=== PATIENT | female | born 1960 | race African-American/Black ===

== ENCOUNTER 2022-09-03 06:03 | Inpatient (IN) | payer OTHER ==
[2022-09-03 06:46] LABS: #Eosinphils 0.1 10x3/uL (0.0-0.5); #Monocytes 1.5 10x3/uL (0.0-1.1); #Neutrophils 7.2 10x3/uL (1.5-8.4); %Basophils 0.2 % (0.0-2.0); %Eosinophils 0.6 % (0.0-6.0); %Lymphocytes 16.3 % (18.0-47.0); %Monocytes 14.3 % (0.0-10.0); %Neutrophils 68.2 % (40.0-75.0); Hemoglobin 8.6 g/dL (12.0-15.5); Mean Corpuscular HGB CONC 29.6 g/dL (32.0-36.0); Mean Corpuscular Hemoglobin 28.4 pg (27.0-33.0); Mean Platelet Volume 10.6 fl (7.4-10.4); Platelet Count 141 10x3/uL (150-450); RBC Distribution Width 18.7 % (11.5-14.5); Red Blood Cell (RBC) Count 3.03 10x6/uL (3.90-5.03); White Blood Cell (WBC) Count 10.5 10x3/uL (3.5-10.5)
[2022-09-03 07:02] LABS: ALT (SGPT) 13 U/L (8-55); AST (SGOT) 19 U/L (5-34); Albumin 3.3 g/dL (3.4-4.8); Alkaline Phosphatase 144 U/L (40-110); Anion Gap 20 mmol/L (10-20); BUN (Urea Nitrogen) 49 mg/dL (9.8-20.1); Bilirubin, Total 0.2 mg/dL (0.2-1.2); Calc. Creatinine Clearance 0 mL/min (70-130); Calcium 9.2 mg/dL (7.8-10.44); Carbon Dioxide 17 mmol/L (23-31); Chloride 112 mmol/L (98-107); Estimated GFR 24; Globulin 5.3 g/dL (2.4-3.5); Glucose 111 mg/dL (80-115); Potassium 5.7 mmol/L (3.5-5.1); Protein, Total 8.6 g/dL (5.8-8.1); Sodium 143 mmol/L (136-145)
[2022-09-03 07:20] LABS: Anisocytosis SLIGHT = 6-15 cells (100X) (0-5/hpf); Hypochromia MODERATE=16-30 cells (100X) (0-5/hpf); Macrocytosis SLIGHT = 6-15 cells (100X) (0-5/hpf)
[2022-09-03 07:21] LABS: Platelet Morphology Comment Appears Adequate
[2022-09-03] MEDS ORDERED: Furosemide 40 MG/4 ML VIAL ONE (07:22)
[2022-09-03 07:29] LABS: SARS-CoV-2 NAA Rapid Test Not Detected (NotDetected)
[2022-09-03] MEDS ORDERED: risperiDONE 0.5 MG TAB ONE (08:02)
[2022-09-03] MEDS ORDERED: Acetaminophen 650 MG Suppository PR PRN (10:35)
[2022-09-03 10:43] LABS: Anion Gap 16 mmol/L (10-20); BUN (Urea Nitrogen) 47 mg/dL (9.8-20.1); Calc. Creatinine Clearance 0 mL/min (70-130); Calcium 9.2 mg/dL (7.8-10.44); Carbon Dioxide 18 mmol/L (23-31); Chloride 111 mmol/L (98-107); Estimated GFR 25; Glucose 114 mg/dL (80-115); Potassium 5.6 mmol/L (3.5-5.1); Sodium 139 mmol/L (136-145)
[2022-09-03] MEDS ORDERED: Ipratropium/Albuterol 3 ML NEB NEB PRN (11:01)
[2022-09-03] MEDS ORDERED: Calcium Gluconate 4.6 MEQ in Sodium Chloride 0.9% 100 ML IVPB SCH ×2 (11:02→16:30)
[2022-09-03 11:50] LABS: Magnesium 2.6 mg/dL (1.6-2.6)
[2022-09-03] MEDS: Furosemide 40 MG/4 ML VIAL SLOW IVP SCH (16:17)
[2022-09-03] MEDS ORDERED: FLU VACC QS2022-23(6MOS UP)/PF 60 MCG/0.5 ML SYRINGE IM ONE (16:30)
[2022-09-03] MEDS: Carvedilol 12.5 MG TAB PO SCH (17:03)
[2022-09-03 17:34] LABS: Actual Bicarbonate (HCO3a) 21.2 mEq/L (22-28); CO2 Tension 44.5 mmHg (35.0-45.0); O2 Tension (PaO2), arterial 85.2 mmHg (> 80.0)
[2022-09-03 17:35] LABS: Calcium, Ionized (arterial) 1.25 mmol/L (1.12-1.30); Carboxyhemoglobin (COHb) 0.7 gm% (0.0-3.0); Hemoglobin (Hb) 9.7 g/dL (12.0-16.0); Potassium - ABG Lab 5.4 mmol/L (3.70-5.30)
[2022-09-03 17:36] LABS: ALV-art Gradient 572.175 mmHg (0-20); Puncture Site LRA
[2022-09-03] MEDS: Aripiprazole 10 MG TAB PO SCH (21:12)
[2022-09-03] MEDS: Atorvastatin Calcium 10 MG TAB PO SCH (21:12)
[2022-09-03] MEDS: Haloperidol 5 MG TAB PO SCH (21:12)
[2022-09-03] MEDS: Benztropine 1 MG TAB PO SCH (21:12)
[2022-09-03] MEDS: Heparin 5,000 UNITS/ML VIAL SC SCH (21:18)
[2022-09-04] MEDS: Acetaminophen 325 MG TAB PO PRN ×2 (00:18→11:12)
[2022-09-04 05:00] LABS: Anion Gap 15 mmol/L (10-20); BUN (Urea Nitrogen) 59 mg/dL (9.8-20.1); Calc. Creatinine Clearance 0 mL/min (70-130); Calcium 9.1 mg/dL (7.8-10.44); Carbon Dioxide 20 mmol/L (23-31); Chloride 111 mmol/L (98-107); Estimated GFR 22; Glucose 146 mg/dL (80-115); Potassium 5.5 mmol/L (3.5-5.1); Sodium 140 mmol/L (136-145)
[2022-09-04 05:07] LABS: #Monocytes 0.5 10x3/uL (0.0-1.1); %Lymphocytes 13.3 % (18.0-47.0); %Monocytes 7.8 % (0.0-10.0); %Neutrophils 78.3 % (40.0-75.0); Hemoglobin 8.1 g/dL (12.0-15.5); Mean Corpuscular HGB CONC 29.7 g/dL (32.0-36.0); Mean Corpuscular Hemoglobin 28.6 pg (27.0-33.0); Mean Corpuscular Volume 96.5 fl (81.6-98.3); Mean Platelet Volume 10.3 fl (7.4-10.4); Platelet Count 106 10x3/uL (150-450); Red Blood Cell (RBC) Count 2.83 10x6/uL (3.90-5.03); White Blood Cell (WBC) Count 6.4 10x3/uL (3.5-10.5)
[2022-09-04] MEDS: Furosemide 40 MG/4 ML VIAL SLOW IVP SCH (05:39)
[2022-09-04 06:31] LABS: Microcytosis SLIGHT = 6-15 cells (100X) (0-5/hpf); Ovalocytes SLIGHT = 2-5 cells (100X) (0-1/hpf); Tear Drops SLIGHT = 2-5 cells (100X) (0-1/hpf)
[2022-09-04 06:32] LABS: Anisocytosis SLIGHT = 6-15 cells (100X) (0-5/hpf); Macrocytosis SLIGHT = 6-15 cells (100X) (0-5/hpf); Platelet Morphology Comment Appears Decreased
[2022-09-04] MEDS: Haloperidol 5 MG TAB PO SCH ×2 (08:14→21:13)
[2022-09-04] MEDS: Divalproex Sodium DR 500 MG TAB PO SCH (08:14)
[2022-09-04] MEDS: Carvedilol 12.5 MG TAB PO SCH ×2 (08:14→17:07)
[2022-09-04] MEDS: Benztropine 1 MG TAB PO SCH ×2 (08:14→21:13)
[2022-09-04] MEDS: Aspirin 81 mg Enteric Coated Tablet PO SCH (08:14)
[2022-09-04] MEDS: Heparin 5,000 UNITS/ML VIAL SC SCH ×2 (09:33→21:12)
[2022-09-04] MEDS ORDERED: Furosemide 40 MG TAB PO SCH (14:00)
[2022-09-04] MEDS: Aripiprazole 10 MG TAB PO SCH (21:12)
[2022-09-04] MEDS: Atorvastatin Calcium 10 MG TAB PO SCH (21:13)
[2022-09-05 04:05] LABS: #Monocytes 0.7 10x3/uL (0.0-1.1); #Neutrophils 3.9 10x3/uL (1.5-8.4); %Basophils 0.2 % (0.0-2.0); %Eosinophils 0.5 % (0.0-6.0); %Lymphocytes 24.4 % (18.0-47.0); %Monocytes 11.8 % (0.0-10.0); %Neutrophils 62.5 % (40.0-75.0); Hemoglobin 8.1 g/dL (12.0-15.5); Mean Corpuscular HGB CONC 29.8 g/dL (32.0-36.0); Mean Corpuscular Hemoglobin 28.4 pg (27.0-33.0); Mean Corpuscular Volume 95.4 fl (81.6-98.3); Mean Platelet Volume 10.2 fl (7.4-10.4); Platelet Count 114 10x3/uL (150-450); RBC Distribution Width 18.8 % (11.5-14.5); Red Blood Cell (RBC) Count 2.85 10x6/uL (3.90-5.03); White Blood Cell (WBC) Count 6.3 10x3/uL (3.5-10.5)
[2022-09-05 04:18] LABS: Anion Gap 14 mmol/L (10-20); BUN (Urea Nitrogen) 64 mg/dL (9.8-20.1); Calc. Creatinine Clearance 0 mL/min (70-130); Calcium 9.1 mg/dL (7.8-10.44); Carbon Dioxide 21 mmol/L (23-31); Chloride 112 mmol/L (98-107); Estimated GFR 23; Glucose 125 mg/dL (80-115); Potassium 5.5 mmol/L (3.5-5.1); Sodium 141 mmol/L (136-145)
[2022-09-05 04:46] LABS: Anisocytosis SLIGHT = 6-15 cells (100X) (0-5/hpf); Hypochromia SLIGHT = 6-15 cells (100X) (0-5/hpf); Platelet Morphology Comment Appears Decreased
[2022-09-05] MEDS: Aspirin 81 mg Enteric Coated Tablet PO SCH (11:08)
[2022-09-05] MEDS: Haloperidol 5 MG TAB PO SCH ×2 (11:08→21:21)
[2022-09-05] MEDS: Carvedilol 12.5 MG TAB PO SCH ×2 (11:08→16:50)
[2022-09-05] MEDS: Benztropine 1 MG TAB PO SCH ×2 (11:09→21:20)
[2022-09-05] MEDS: Heparin 5,000 UNITS/ML VIAL SC SCH ×2 (11:09→21:27)
[2022-09-05] MEDS: Divalproex Sodium DR 500 MG TAB PO SCH (11:09)
[2022-09-05] MEDS: Acetaminophen 325 MG TAB PO PRN ×2 (13:49→21:20)
[2022-09-05] MEDS ORDERED: Furosemide 40 MG TAB PO SCH (17:00)
[2022-09-05] MEDS ORDERED: EPOETIN ALFA-EPBX (ESRD) 10,000 UNIT/ML VIAL SC SCH (18:30)
[2022-09-05] MEDS: Aripiprazole 10 MG TAB PO SCH (21:20)
[2022-09-05] MEDS: Atorvastatin Calcium 10 MG TAB PO SCH (21:20)
[2022-09-06 04:42] LABS: #Eosinphils 0.1 10x3/uL (0.0-0.5); #Monocytes 0.7 10x3/uL (0.0-1.1); #Neutrophils 2.4 10x3/uL (1.5-8.4); %Basophils 0.4 % (0.0-2.0); %Eosinophils 1.2 % (0.0-6.0); %Lymphocytes 35.3 % (18.0-47.0); %Monocytes 14.6 % (0.0-10.0); %Neutrophils 47.9 % (40.0-75.0); Hemoglobin 7.7 g/dL (12.0-15.5); Mean Corpuscular HGB CONC 29.3 g/dL (32.0-36.0); Mean Corpuscular Hemoglobin 28.5 pg (27.0-33.0); Mean Corpuscular Volume 97.4 fl (81.6-98.3); Mean Platelet Volume 10.3 fl (7.4-10.4); Platelet Count 86 10x3/uL (150-450); RBC Distribution Width 18.7 % (11.5-14.5); White Blood Cell (WBC) Count 4.9 10x3/uL (3.5-10.5)
[2022-09-06 04:55] LABS: Anion Gap 13 mmol/L (10-20); BUN (Urea Nitrogen) 59 mg/dL (9.8-20.1); Calc. Creatinine Clearance 0 mL/min (70-130); Calcium 8.9 mg/dL (7.8-10.44); Carbon Dioxide 19 mmol/L (23-31); Chloride 114 mmol/L (98-107); Estimated GFR 33; Glucose 126 mg/dL (80-115); Potassium 5.3 mmol/L (3.5-5.1); Sodium 141 mmol/L (136-145)
[2022-09-06 05:13] LABS: Anisocytosis SLIGHT = 6-15 cells (100X) (0-5/hpf); Hypochromia SLIGHT = 6-15 cells (100X) (0-5/hpf)
[2022-09-06 05:14] LABS: Platelet Morphology Comment Appears Decreased
[2022-09-06] MEDS: Acetaminophen 325 MG TAB PO PRN (09:14)
[2022-09-06] MEDS: Haloperidol 5 MG TAB PO SCH ×2 (09:15→20:42)
[2022-09-06] MEDS: Furosemide 40 MG TAB PO SCH ×2 (09:15→15:24)
[2022-09-06] MEDS: Divalproex Sodium DR 500 MG TAB PO SCH (09:15)
[2022-09-06] MEDS: Heparin 5,000 UNITS/ML VIAL SC SCH ×2 (09:15→20:49)
[2022-09-06] MEDS: Benztropine 1 MG TAB PO SCH ×2 (09:15→20:43)
[2022-09-06] MEDS: Aspirin 81 mg Enteric Coated Tablet PO SCH (09:15)
[2022-09-06] MEDS: Carvedilol 12.5 MG TAB PO SCH ×2 (09:15→16:16)
[2022-09-06] MEDS ORDERED: ALPRAZolam 1 MG TAB PO SCH (18:45)
[2022-09-06] MEDS: Aripiprazole 10 MG TAB PO SCH (20:42)
[2022-09-06] MEDS: Atorvastatin Calcium 10 MG TAB PO SCH (20:43)
[2022-09-06] MEDS ORDERED: Metoprolol Tartrate 25 MG TAB PO SCH (23:45)
[2022-09-07 04:50] LABS: Hemoglobin 7.2 g/dL (12.0-15.5); Mean Corpuscular HGB CONC 30.1 g/dL (32.0-36.0); Mean Corpuscular Hemoglobin 28.7 pg (27.0-33.0); Mean Corpuscular Volume 95.2 fl (81.6-98.3); Mean Platelet Volume 10.1 fl (7.4-10.4); Platelet Count 69 10x3/uL (150-450); Red Blood Cell (RBC) Count 2.51 10x6/uL (3.90-5.03); White Blood Cell (WBC) Count 4.9 10x3/uL (3.5-10.5)
[2022-09-07 04:52] LABS: MDiff Complete? YES
[2022-09-07 05:01] LABS: Anion Gap 11 mmol/L (10-20); BUN (Urea Nitrogen) 46 mg/dL (9.8-20.1); Calc. Creatinine Clearance 0 mL/min (70-130); Calcium 9.1 mg/dL (7.8-10.44); Carbon Dioxide 27 mmol/L (23-31); Chloride 109 mmol/L (98-107); Estimated GFR 44; Glucose 107 mg/dL (80-115); Potassium 4.6 mmol/L (3.5-5.1); Sodium 142 mmol/L (136-145)
[2022-09-07 05:23] LABS: Eosinophils 1 % (0-10); Lymphocytes 40 % (21-51); Monocytes 16 % (0-10); Neutrophil 42 % (42-75)
[2022-09-07 05:24] LABS: Anisocytosis SLIGHT = 6-15 cells (100X) (0-5/hpf); Hypochromia SLIGHT = 6-15 cells (100X) (0-5/hpf)
[2022-09-07 05:25] LABS: Platelet Morphology Comment Appears Decreased
[2022-09-07] MEDS: Divalproex Sodium DR 500 MG TAB PO SCH (09:00)
[2022-09-07] MEDS: Acetaminophen 325 MG TAB PO PRN (09:00)
[2022-09-07] MEDS: Haloperidol 5 MG TAB PO SCH (09:00)
[2022-09-07] MEDS ORDERED: NIFEdipine XL 60 MG TAB PO SCH (09:00)
[2022-09-07] MEDS: Carvedilol 12.5 MG TAB PO SCH ×2 (09:00→16:35)
[2022-09-07] MEDS: Furosemide 40 MG TAB PO SCH ×2 (09:00→16:35)
[2022-09-07] MEDS: hydrALAZINE 25 MG TAB PO SCH ×2 (09:00→16:36)
[2022-09-07] MEDS: Aspirin 81 mg Enteric Coated Tablet PO SCH (09:01)
[2022-09-07] MEDS: Heparin 5,000 UNITS/ML VIAL SC SCH (09:01)
[2022-09-07] MEDS: Benztropine 1 MG TAB PO SCH (09:01)
[2022-09-07 15:21] VITALS: BP 184/100; TEMP 97.9
[2022-09-12] MEDS ORDERED: EPOETIN ALFA-EPBX (ESRD) 10,000 UNIT/ML VIAL SC SCH (13:00)
== END 2022-09-07 17:00 | DRG 682 ==
LOC: CSHERS 06:03 → CSHTELE 14:13
PROVIDERS: ADMIT Internal Medicine; ATTEND Internal Medicine
DX: N17.9 Acute kidney failure, unspecified (principal); I50.33 Acute on chronic diastolic (congestive) heart failure; J96.01 Acute respiratory failure with hypoxia; I13.0 Hypertensive heart and chronic kidney disease with heart failure and stage 1 through stage 4 chronic kidney disease, or unspecified chronic kidney disease; E87.20 Acidosis, unspecified; E78.5 Hyperlipidemia, unspecified; E11.22 Type 2 diabetes mellitus with diabetic chronic kidney disease; F20.9 Schizophrenia, unspecified; Z20.822 Contact with and (suspected) exposure to COVID-19; G40.909 Epilepsy, unspecified, not intractable, without status epilepticus; E87.5 Hyperkalemia; N18.31 Chronic kidney disease, stage 3a; Z86.73 Personal history of transient ischemic attack (TIA), and cerebral infarction without residual deficits; Z98.890 Other specified postprocedural states; Z87.891 Personal history of nicotine dependence; Z88.8 Allergy status to other drugs, medicaments and biological substances; Z79.899 Other long term (current) drug therapy; Z79.82 Long term (current) use of aspirin; Z79.4 Long term (current) use of insulin
CPT/HCPCS: 36415; 36416; 36600; 70450; 71045; 80048; 80053; 82306; 82805; 83605; 83735; 83880; 83970; 84484; 85025; 93005; 94760; J0610; J1644; J1940; J3490; Q5105